=== PATIENT | male | born 2000 | race Caucasian/White ===

== ENCOUNTER 2020-06-30 19:27 | Emergency (ER) | payer BC, OTHER ==
[~2020-06-30] VITALS: Ht 182.9 cm; Wt 95.2 kg
== END 2020-06-30 22:24 | disposition home or self-care (01) ==
LOC: ED 19:27
DX: T14.91XA Suicide attempt, initial encounter (principal); X83.8XXA Intentional self-harm by other specified means, initial encounter
CPT/HCPCS: 80053; 80176; 81001; 84443; 85025; 99285